=== PATIENT | male | born 1975 | race Caucasian/White ===

== ENCOUNTER 2016-09-07 19:43 | Emergency (ER) | payer BC ==
[2016-09-07 19:43] VITALS: BP 133/82
--- NOTE | 2016-09-07 19:45 | ED.ADGEN ---
Adult General Chief Complaint Chief Complaint ".. I got hemorrhoids... I think .. my butt hole is extremely tender.. and it hurts to try and go bathroom.. my stool is hard.. and now I see some bright red blood..." HPI HPI Patient is a 40 year old male who presents with above hx and complaints. of rectal pain and some bright red blood. Patient recently has had some constipation. Patient denies prior problems with hemorrhoids or rectal pain. No history of rectal sex. No History of colitis or Crohn's. No recent travel. No ill contacts. Patient normally healthy. Review of Systems Review of Systems Constitutional: Denies fever or chills [] Eyes: Denies change in visual acuity, redness, or eye pain [] HENT: Denies nasal congestion or sore throat [] Respiratory: Denies cough or shortness of breath [] Cardiovascular: No additional information not addressed in HPI [] GI: Denies abdominal pain, nausea, vomiting, bloody stools or diarrhea. Hx. of constipation and complaints of rectal pain and bright red blood toilet paper. : Denies dysuria or hematuria [] Musculoskeletal: Denies back pain or joint pain [] Integument: Denies rash or skin lesions [] Neurologic: Denies headache, focal weakness or sensory changes [] Endocrine: Denies polyuria or polydipsia [] Family History Family History Noncontributory Current Medications Current Medications Current Medications Medications (Trade) Dose Ordered Sig/Satnam Start Time Stop Time Status Last Admin Dose Admin Levofloxacin (Levaquin) 500 mg 1X ONCE 09/07/16 20:00 09/07/16 20:01 DC 09/07/16 20:11 500 MG Magnesium Hydroxide (Milk Of Magnesia) 2,400 mg 1X ONCE 09/07/16 20:30 09/07/16 20:31 DC 09/07/16 20:55 2,400 MG Metronidazole (Flagyl) 500 mg 1X ONCE 09/07/16 20:00 09/07/16 20:01 DC 09/07/16 20:11 500 MG Morphine Sulfate (Morphine 10mg Syringe) 10 mg 1X ONCE 09/07/16 20:00 09/07/16 20:01 DC 09/07/16 20:11 10 MG Allergies Allergies Allergies Coded Allergies Type Severity Reaction Last Updated Verified Penicillins Allergy Intermediate 09/07/16 Yes Physical Exam Physical Exam Constitutional: Well developed, well nourished, in acute distress, non-toxic appearance. [] HENT: Normocephalic, atraumatic, bilateral external ears normal, oropharynx moist, no oral exudates, nose normal. [] Eyes: PERRLA, EOMI, conjunctiva normal, no discharge. [] Neck: Normal range of motion, no tenderness, supple, no stridor. [] Cardiovascular:Heart rate regular rhythm, no murmur [] Lungs & Thorax: Bilateral breath sounds clear to auscultation [] Abdomen: Bowel sounds normal, soft, no tenderness, no masses, no pulsatile masses. Mild abdomen distention. Hard stool. Some rectal edema. Trace bright red blood. No obvious external hemorrhoid. Skin: Warm, dry, no erythema, no rash. [] Back: No tenderness, no CVA tenderness. [] Extremities: No tenderness, no cyanosis, no clubbing, ROM intact, no edema. [] Neurologic: Alert and oriented X 3, normal motor function, normal sensory function, no focal deficits noted. [] Psychologic: Affect anxious, judgement normal, mood normal. [] Current Patient Data Vital Signs Vital Signs Date Time Temp Pulse Resp B/P Pulse Ox O2 Delivery O2 Flow Rate FiO2 09/07/16 19:43 98.3 124 22 98 Room Air EKG EKG [] Radiology/Procedures Radiology/Procedures [] Course & Med Decision Making Course & Med Decision Making Pertinent Labs and Imaging studies reviewed. (See chart for details). Sitz baths,. Levaquin 500 x 5 days. Flagyl 500 tid x 10 days. HC supp. up to 4 times a day. Milk of magnesia 30 mL a day to keep stool soft especially if taken Vicoprofen for pain. Clear fluid diet the next couple days. Follow-up with GI or rectal surgery for further eval. of rectal pain and out let bleeding. Return if any concerns. [] Final Impression Final Impression 1. Rectal Pain 2. Suspect Internal Hemorrhoids[] 3. Hx of Constipation 4. Outlet Bleeding Problems: Dragon Disclaimer Dragon Disclaimer This electronic medical record was generated, in whole or in part, using a voice recognition dictation system. ANGELICA STEINBERG MD Sep 07, 2016 19:45
[2016-09-07] MEDS ORDERED: METRONIDAZOLE 500 MG TABLET PO ONE (20:00)
[2016-09-07] MEDS ORDERED: LEVOFLOXACIN 500 MG TABLET PO ONE (20:00)
[2016-09-07] MEDS ORDERED: MORPHINE SULFATE 10 MG/ML SYRINGE. SQ ONE (20:00)
[2016-09-07] MEDS ORDERED: MAGNESIUM HYDROXIDE 2,400 MG/30 ML ORAL.SUSP. PO ONE (20:30)
[2016-09-07] MEDS ORDERED: METR750T PO (20:36)
[2016-09-07] MEDS ORDERED: HYDR25SU4 RC (20:36)
[2016-09-07] MEDS ORDERED: HYDR-79 PO (20:36)
[2016-09-07] MEDS ORDERED: LEVO500T38 PO (20:36)
[2016-09-07] MEDS ORDERED: ONDA8TAB12 PO (20:36)
== END 2016-09-07 20:57 | disposition home or self-care (01) ==
LOC: ER 19:43
DX: K62.89 Other specified diseases of anus and rectum (principal); K62.5 Hemorrhage of anus and rectum; Z88.0 Allergy status to penicillin
CPT/HCPCS: 96372; 99284; J2270

== ENCOUNTER 2016-12-30 20:59 | Emergency (ER) | payer BC ==
[~2016-12-30 20:59] MED LIST: HYDR-79 PO; HYDR25SU4 RC; LEVO500T59 PO; METR750T PO; ONDA8TAB12 PO
[2016-12-30 21:25] VITALS: BP 136/83
[2016-12-30] MEDS ORDERED: CONTRAST GIVEN MC PRN (22:00)
[2016-12-30] MEDS ORDERED: IV NORMAL SALINE 1,000ML 1,000 ML IV ONE (22:15)
[2016-12-30] MEDS ORDERED: IOHEXOL 300 MG/ML 75 ML VIAL. IV ONE (22:15)
[2016-12-30] MEDS ORDERED: MORPHINE SULFATE 4 MG/ML DISP.SYRIN. ONE (22:19)
[2016-12-30] MEDS ORDERED: IV NORMAL SALINE 1,000ML 1,000 ML ONE (22:19)
[2016-12-30] MEDS ORDERED: ONDANSETRON PF 4 MG/2 ML VIAL. ONE (22:20)
[2016-12-30] MEDS ORDERED: MORPHINE SULFATE 4 MG/ML DISP.SYRIN. IV ONE (22:30)
[2016-12-30] MEDS ORDERED: ONDANSETRON PF 4 MG/2 ML VIAL. IV ONE (22:30)
[2016-12-30 22:34] LABS: BASO # 0.1 x10^3/uL (0.0-0.2); BASO % 1 % (0-3); EOS # 0.2 x10^3/uL (0.0-0.7); EOS % 3 % (0-3); HEMATOCRIT 43.5 % (39.0-53.0); HEMOGLOBIN 14.8 g/dL (13.0-17.5); LYMPH # 3.4 x10^3/uL (1.0-4.8); LYMPH % 38 % (24-48); MEAN CORPUSCULAR HEMOGLOBIN 30 pg (25-35); MEAN CORPUSCULAR HGB CONC 34 g/dL (31-37); MEAN CORPUSCULAR VOLUME 87 fL (79-100); MONO # 0.8 x10^3/uL (0.0-1.1); MONO % 9 % (0-9); NEUT # 4.5 x10^3uL (1.8-7.7); NEUT % 50 % (31-73); PLATELET COUNT 356 x10^3/uL (140-400); RED BLOOD COUNT 5.01 x10^6/uL (4.30-5.70); WHITE BLOOD COUNT 8.9 x10^3/uL (4.0-11.0)
[2016-12-30 22:44] LABS: ALBUMIN 3.6 g/dL (3.4-5.0); CALCIUM 8.8 mg/dL (8.5-10.1); CREATININE 0.8 mg/dL (0.7-1.3); GFR 107.1; POTASSIUM 3.3 mmol/L (3.5-5.1); TOTAL BILIRUBIN 0.4 mg/dL (0.2-1.0); TOTAL PROTEIN 7.2 g/dL (6.4-8.2)
--- NOTE | 2016-12-30 23:17 | RAD ---
CT ABDOMEN/PELVIS Indication: PERIUMBILICAL PAIN, EVAL FOR HERNIA, HX APPENDECTOMY, 75 ML OMNI 300 Technique: Multiple contiguous axial images were obtained through the abdomen and pelvis after administration of intravenous iodinated contrast. Coronal and sagittal reformations were created. PQRS STATEMENT One or more of the following in the visualized dose reduction techniques were utilized for this study: 1. Automatic exposure control, 2. Adjustment of the mA and/or kV according to patient size, 3. Use of iterative reconstruction technique Findings: The heart size is normal. The lung bases are clear. The liver is normal in size and demonstrates diffuse fatty infiltration. The gallbladder is nondistended. The pancreas, spleen, and adrenal glands are within normal limits. The kidneys are unremarkable. The portal vein and SMV are patent. The abdominal aorta is normal in caliber. There is no abdominopelvic ascites or adenopathy. The bowel loops are normal in caliber. The appendix is not identified. The urinary bladder is unremarkable. No destructive osseus lesions are identified. There is a focus of subcutaneous stranding just superior and lateral towards the right from the umbilicus. No hernia is appreciated. Impression: There is a focal area subcutaneous inflammation adjacent to the umbilicus with no evidence for hernia. This could represent cellulitis.. There is no evidence for abscess. Diffuse fatty infiltration of the liver. Electronically signed by: Rancho Prakash MD (12/30/2016 11:14 PM) [facility]
[2016-12-30 23:18] LABS: BACTERIA,URINE 0 /HPF (0-FEW); BILIRUBIN,URINE NEG (NEG); CLARITY,URINE CLEAR; COLOR,URINE YELLOW; GLUCOSE,URINE NEG (NEG); NITRITE,URINE NEG (NEG); UROBILINOGEN,URINE 0.2 mg/dL (0.2 mg/dL)
[2016-12-30 23:19] LABS: WBC,URINE OCC /HPF (0-4)
--- NOTE | 2016-12-30 23:32 | PHYS DOC ---
Past History Past Medical History: Hypertension Past Surgical History: Appendectomy Alcohol Use: None Drug Use: None Adult General Chief Complaint Chief Complaint: ABDOMINAL PAIN HPI HPI Patient is a 41-year-old male presenting to the emergency department for evaluation of right dano-umbilical abdominal pain that started 3 days ago and has persisted. He says the pain is constant sharp nonradiating and there is no nausea vomiting diarrhea constipation dysuria hematuria or testicular pain with it. He says that he has had an appendectomy but no other prior abdominal surgeries. He is in no obvious distress with normal vital signs. Review of Systems Review of Systems Constitutional: Denies fever or chills [] Eyes: Denies change in visual acuity, redness, or eye pain [] HENT: Denies nasal congestion or sore throat [] Respiratory: Denies cough or shortness of breath [] Cardiovascular: No additional information not addressed in HPI [] GI: + abdominal pain. No nausea, vomiting, bloody stools or diarrhea [] : Denies dysuria or hematuria [] Musculoskeletal: Denies back pain or joint pain [] Integument: Denies rash or skin lesions [] Neurologic: Denies headache, focal weakness or sensory changes [] Current Medications Current Medications Current Medications Medications (Trade) Dose Ordered Sig/Satnam Start Time Stop Time Status Last Admin Dose Admin Info (Do NOT chart on this entry -- for MONITORING) 1 each PRN DAILY PRN 12/30/16 22:00 01/01/17 21:59 Iohexol (Omnipaque 300 Mg/ml) 75 ml 1X ONCE 12/30/16 22:15 12/30/16 22:16 DC 12/30/16 22:15 75 ML Morphine Sulfate (Morphine 4mg Syringe) 4 mg STK-MED ONCE 12/30/16 22:19 12/30/16 22:20 DC Ondansetron HCl (Zofran) 4 mg STK-MED ONCE 12/30/16 22:20 12/30/16 22:21 DC Sodium Chloride 1,000 ml @ As Directed STK-MED ONCE 12/30/16 22:19 12/30/16 22:20 DC Allergies Allergies Allergies Coded Allergies Type Severity Reaction Last Updated Verified Penicillins Allergy Intermediate 09/07/16 Yes Physical Exam Physical Exam Constitutional: Well developed, well nourished, no acute distress, non-toxic appearance. [] HENT: Normocephalic, atraumatic, bilateral external ears normal, oropharynx moist, no oral exudates, nose normal. [] Eyes: PERRLA, EOMI, conjunctiva normal, no discharge. [] Neck: Normal range of motion, no tenderness, supple, no stridor. [] Cardiovascular:Heart rate regular rhythm, no murmur [] Lungs & Thorax: Bilateral breath sounds clear to auscultation [] Abdomen: Bowel sounds normal, soft, just right and superior to his umbilicus there is a subcutaneous hardening, there is no overlying erythema warmth, SQ air or induration, no drainage, this focal area is where all of his pain is located, no masses, no pulsatile masses. [] Skin: Warm, dry, no erythema, no rash. [] Back: No tenderness, no CVA tenderness. [] Extremities: No tenderness, no cyanosis, no clubbing, ROM intact, no edema. [] Neurologic: Alert and oriented X 3, normal motor function, normal sensory function, no focal deficits noted. [] Current Patient Data Vital Signs Vital Signs Date Time Temp Pulse Resp B/P (MAP) Pulse Ox O2 Delivery O2 Flow Rate FiO2 12/30/16 22:26 20 96 Room Air 12/30/16 21:25 98.1 108 Lab Results Laboratory Tests Test 12/30/16 22:00 12/30/16 22:05 Urine Collection Type Unknown Urine Color Yellow Urine Clarity Clear Urine pH 5.5 Urine Specific [place] 1.025 Urine Protein Neg (NEG-TRACE) Urine Glucose (UA) Neg mg/dL (NEG) Urine Ketones (Stick) Neg mg/dL (NEG) Urine Blood Small (NEG) Urine Nitrite Neg (NEG) Urine Bilirubin Neg (NEG) Urine Urobilinogen Dipstick 0.2 mg/dL (0.2 mg/dL) Urine Leukocyte Esterase Neg (NEG) Urine RBC 1-2 /HPF (0-2) Urine WBC Occ /HPF (0-4) Urine Squamous Epithelial Cells None /LPF Urine Bacteria 0 /HPF (0-FEW) Urine Mucus Mod /LPF White Blood Count 8.9 x10^3/uL (4.0-11.0) Red Blood Count 5.01 x10^6/uL (4.30-5.70) Hemoglobin 14.8 g/dL (13.0-17.5) Hematocrit 43.5 % (39.0-53.0) Mean Corpuscular Volume 87 fL (79-100) Mean Corpuscular Hemoglobin 30 pg (25-35) Mean Corpuscular Hemoglobin Concent 34 g/dL (31-37) Red Cell Distribution Width 13.0 % (11.5-14.5) Platelet Count 356 x10^3/uL (140-400) Neutrophils (%) (Auto) 50 % (31-73) Lymphocytes (%) (Auto) 38 % (24-48) Monocytes (%) (Auto) 9 % (0-9) Eosinophils (%) (Auto) 3 % (0-3) Basophils (%) (Auto) 1 % (0-3) Neutrophils # (Auto) 4.5 x10^3uL (1.8-7.7) Lymphocytes # (Auto) 3.4 x10^3/uL (1.0-4.8) Monocytes # (Auto) 0.8 x10^3/uL (0.0-1.1) Eosinophils # (Auto) 0.2 x10^3/uL (0.0-0.7) Basophils # (Auto) 0.1 x10^3/uL (0.0-0.2) Prothrombin Time 10.0 SEC (9.4-11.4) Prothrombin Time INR 1.0 (0.9-1.1) PTT 24 SEC (23-33) Sodium Level 139 mmol/L (136-145) Potassium Level 3.3 mmol/L (3.5-5.1) L Chloride Level 102 mmol/L (98-107) Carbon Dioxide Level 30 mmol/L (21-32) Anion Gap 7 (6-14) Blood Urea Nitrogen 18 mg/dL (8-26) Creatinine 0.8 mg/dL (0.7-1.3) Estimated GFR (Cockcroft-Gault) 107.1 BUN/Creatinine Ratio 23 (6-20) H Glucose Level 113 mg/dL (70-99) H Calcium Level 8.8 mg/dL (8.5-10.1) Total Bilirubin 0.4 mg/dL (0.2-1.0) Aspartate Amino Transferase (AST) 42 U/L (15-37) H Alanine Aminotransferase (ALT) 102 U/L (16-63) H Alkaline Phosphatase 68 U/L (46-116) Total Protein 7.2 g/dL (6.4-8.2) Albumin 3.6 g/dL (3.4-5.0) Albumin/Globulin Ratio 1.0 (1.0-1.7) Lipase 235 U/L (73-393) EKG EKG [] Radiology/Procedures Radiology/Procedures CT ABDOMEN/PELVIS Indication: PERIUMBILICAL PAIN, EVAL FOR HERNIA, HX APPENDECTOMY, 75 ML OMNI 300 Technique: Multiple contiguous axial images were obtained through the abdomen and pelvis after administration of intravenous iodinated contrast. Coronal and sagittal reformations were created. PQRS STATEMENT One or more of the following in the visualized dose reduction techniques were utilized for this study: 1. Automatic exposure control, 2. Adjustment of the mA and/or kV according to patient size, 3. Use of iterative reconstruction technique Findings: The heart size is normal. The lung bases are clear. The liver is normal in size and demonstrates diffuse fatty infiltration. The gallbladder is nondistended. The pancreas, spleen, and adrenal glands are within normal limits. The kidneys are unremarkable. The portal vein and SMV are patent. The abdominal aorta is normal in caliber. There is no abdominopelvic ascites or adenopathy. The bowel loops are normal in caliber. The appendix is not identified. The urinary bladder is unremarkable. No destructive osseus lesions are identified. There is a focus of subcutaneous stranding just superior and lateral towards the right from the umbilicus. No hernia is appreciated. Impression: There is a focal area subcutaneous inflammation adjacent to the umbilicus with no evidence for hernia. This could represent cellulitis.. There is no evidence for abscess. Diffuse fatty infiltration of the liver. Electronically signed by: Rancho Roy MD (12/30/2016 11:14 PM) [facility] DICTATED AND SIGNED BY: RANCHO ROY MD DATE: 12/30/16 0787 Course & Med Decision Making Course & Med Decision Making There is definitely no cellulitis on his skin and I do not what is causing the abnormality on physical exam or CT. I suspect possibly and adipose infection but there is no fluid collection for me to drain. His pain is controlled here and he has no systemic symptoms and his lab work is quite unremarkable. He says that he drank heavily yesterday so that is likely why his liver enzymes are elevated but I did recommend he get follow-up with his PCP for his fatty liver and elevated liver enzymes on lab work. Patient told to follow the next 2 -3 weeks for his PCP follow-up but as far as the abdominal pain goes I think that he should be placed on antibiotics and he was given a dose of Rocephin in the emergency department and will be discharged on Bactrim. Given his pain is controlled he appears nontoxic and I think that he can be discharged with general surgery follow-up in 1-2 days. I told him if he is having worsening pain fevers or other general concerns he should come back to the emergency department sooner as he may require admission but otherwise take the antibiotics and follow-up as an outpatient. Patient aware and agreeable with plan for discharge and verbalized understanding of the above instructions. Dragon Disclaimer Dragon Disclaimer This chart was dictated in whole or in part using Voice Recognition software in a busy, high-work load, and often noisy Emergency Department environment. It may contain unintended and wholly unrecognized errors or omissions. Departure Departure: Impression: Primary Impression: Abdominal pain Additional Impression: Transaminitis Disposition: HOME, SELF-CARE Condition: GOOD Referrals: PCP,NO (PCP) ELIAN MCCARTY MD Patient Instructions: Abdominal Pain Additional Instructions: TAKE 400MG OF IBUPROFEN EVERY 6 HOURS AND THE NORCO FOR BREAKTHROUGH PAIN. FOLLOW WITH THE SURGEON IN THE NEXT 1-2 DAYS FOR FOLLOW UP AND COME BACK TO THE ED SOONER WITH WORSENING PAIN, FEVERS, OR OTHER GENERAL CONCERNS. Problem Qualifiers Primary Impression: Abdominal pain Abdominal location: periumbilical Qualified Codes: R10.33 - Periumbilical pain JOSHUA FISHER DO Dec 30, 2016 23:32
[2016-12-31] MEDS ORDERED: oxyCODONE/APAP 5/325 1 TAB TABLET PO ONE
[2016-12-31] MEDS ORDERED: KETOROLAC 30 MG/ML VIAL. IV ONE
[2016-12-31] MEDS ORDERED: cefTRIAXone SODIUM 1 GM VIAL IV ONE (00:50)
[2016-12-31] MEDS ORDERED: IV NORMAL SALINE 50ML 50 ML ONE (00:50)
== END 2016-12-31 01:25 | disposition home or self-care (01) ==
LOC: ER 20:59
DX: R10.33 Periumbilical pain (principal); R74.0 Nonspecific elevation of levels of transaminase and lactic acid dehydrogenase [LDH]; I10 Essential (primary) hypertension; Z90.49 Acquired absence of other specified parts of digestive tract; Z88.0 Allergy status to penicillin
CPT/HCPCS: 36415; 74177; 80053; 81001; 83690; 85027; 85610; 85730; 96361; 96365; 96375; 99285; J0696; J1885; J2270; J2405; Q9967; J7030

== ENCOUNTER 2020-12-25 10:29 | Emergency (ER) | payer BC, OTHER ==
[~2020-12-25] VITALS: Ht 175.3 cm; Wt 125.4 kg
[~2020-12-25 10:29] MED LIST changes: +HYDR-1179 PO; -HYDR-79 PO
[2020-12-25 10:31] VITALS: BP 180/134
--- NOTE | 2020-12-25 11:32 | PHYS DOC ---
Past History Past Medical History: Hypertension Past Surgical History: Appendectomy, Other Additional Past Surgical Histo: shoulder, carpal tunnel Alcohol Use: Occasionally Drug Use: None General Adult EDM: Chief Complaint: LACERATION/AVULSION HPI: HPI: 45-year-old male presents with forehead laceration. The patient was chasing his dog around the house when he ran into the corner of a brick fireplace. He sustained a laceration of the right eyebrow region. Patient denies that he was knocked unconscious. He denies numbness or tingling in any of the extremities. He has a headache but denies dizziness. He admits it is a little difficult to concentrate and he wonders about concussion. He denies any other injuries or complaints at this time. Review of Systems: Review of Systems: Constitutional: Denies fever or chills Eyes: Denies change in visual acuity HENT: Denies nasal congestion or sore throat Respiratory: Denies cough or shortness of breath Cardiovascular: Denies chest pain or edema GI: Denies abdominal pain, nausea, vomiting, bloody stools or diarrhea : Denies dysuria Musculoskeletal: Denies back pain or joint pain Integument: Laceration right eyebrow Neurologic: Denies headache, focal weakness or sensory changes Endocrine: Denies polyuria or polydipsia Lymphatic: Denies swollen glands Psychiatric: Denies depression or anxiety Allergies: Allergies: Allergies Coded Allergies Type Severity Reaction Last Updated Verified Penicillins Allergy Intermediate 09/07/16 Yes amoxicillin Allergy Unknown 12/25/20 Yes Physical Exam: PE: Constitutional: Well developed, well nourished, no acute distress, non-toxic appearance. [] HENT: Normocephalic, atraumatic, bilateral external ears normal, oropharynx moist, no oral exudates, nose normal. [] Eyes: PERRLA, EOMI, conjunctiva normal, no discharge. [] Neck: Normal range of motion, no tenderness, supple, no stridor. [] Cardiovascular:Heart rate regular rhythm, no murmur [] Lungs & Thorax: Bilateral breath sounds clear to auscultation [] Abdomen: Bowel sounds normal, soft, no tenderness, no masses, no pulsatile masses. [] Skin: 1.5 cm laceration of the right eyebrow [] Back: No tenderness, no CVA tenderness. [] Extremities: No tenderness, no cyanosis, no clubbing, ROM intact, no edema. [] Neurologic: Alert and oriented X 3, normal motor function, normal sensory function, no focal deficits noted. [] Psychologic: Affect normal, judgement normal, mood normal. [] Current Patient Data: Vital Signs: Vital Signs Date Time Temp Pulse Resp B/P (MAP) Pulse Ox O2 Delivery O2 Flow Rate FiO2 12/25/20 10:31 97.9 104 16 180/134 96 Room Air EKG: EKG: [] Radiology/Procedures: Radiology/Procedures: [] Heart Score: C/O Chest Pain: N/A Risk Factors: Risk Factors: DM, Current or recent (<one month) smoker, HTN, HLP, family history of CAD, obesity. Risk Scores: Score 0 - 3: 2.5% MACE over next 6 weeks - Discharge Home Score 4 - 6: 20.3% MACE over next 6 weeks - Admit for Clinical Observation Score 7 - 10: 72.7% MACE over next 6 weeks - Early Invasive Strategies Course & Med Decision Making: Course & Med Decision Making Pertinent Labs and Imaging studies reviewed. (See chart for details) I repaired the patient's wound with tissue adhesive per the patient's request. See note below for details. Antibiotics are not indicated. The patient is stable for discharge at this time. We have updated his tetanus in the ED. [] Dragon Disclaimer: Lenka Disclaimer: This electronic medical record was generated, in whole or in part, using a voice recognition dictation system. Laceration Repair Lac Repair Indication: [] 1.5 cm linear laceration of the right eyebrow Procedure: I obtained verbal consent from the patient for tissue adhesive repair of his laceration. He would prefer tissue adhesive versus sutures. The wound was thoroughly irrigated with normal saline under pressure. No foreign bodies were found. I placed 2 layers of tissue adhesive over the wound. There was good skin approximation. Bleeding was controlled. There were no complications. No dressing was applied. Total repaired wound length: 1.5 cm Other Items: None] The patient tolerated the procedure well. Complications: None. Departure Departure: Impression: Primary Impression: Laceration of forehead Qualified Codes: S01.81XA - Laceration without foreign body of other part of head, initial encounter Disposition: HOME / SELF CARE / HOMELESS Condition: IMPROVED Referrals: PCP,NO (PCP) Patient Instructions: Tissue Adhesive Wound Care, [id number] JESSI MANJARREZ DO Dec 25, 2020 11:32
[2020-12-25] MEDS ORDERED: DIPH,PERTUSS(ACELL),TET VAC/PF 0.5 ML SYRINGE. VAX IM ONE (11:45)
== END 2020-12-25 11:40 | disposition home or self-care (01) ==
LOC: ER 10:29
DX: S01.111A Laceration without foreign body of right eyelid and periocular area, initial encounter (principal); I10 Essential (primary) hypertension; Z88.0 Allergy status to penicillin; Z88.1 Allergy status to other antibiotic agents; W22.8XXA Striking against or struck by other objects, initial encounter; Y93.89 Activity, other specified; Y92.89 Other specified places as the place of occurrence of the external cause; Y99.8 Other external cause status
CPT/HCPCS: 12011; 99282